=== PATIENT | male | born 1980 | race Caucasian/White ===

== ENCOUNTER 2019-12-11 07:01 | Outpatient (CLI) | payer BC, SELFPAY ==
--- NOTE | ~2019-12-11 | CT_ITS ---
EXAMINATION: CT abdomen pelvis w con INDICATION: Left lower quadrant pain TECHNIQUE: Computed tomographic images of the abdomen and pelvis were obtained after the administrati on of 100 cc of Omnipaque 350 intravenous contrast. The dose-length product (DLP) was 1566.39 mGy-cm. Automated exposure control and iterative reconstruction technique were employed. COMPARISON: None available FINDINGS: The lung bases are clear. The heart size is normal. There is a 5.1 x 5.0 cm mass in the upp er abdomen situated between the main portal vein, celiac axis, and the inferior vena cava which displ aces rather than invades these structures. There appears to be a communication with the first portion of the duodenum. The liver, spleen, pancreas, gallbladder, and adrenal glands are normal. The kidney s are unremarkable. No pathologically enlarged abdominal or pelvic lymph nodes are identified. There is no free intraperitoneal gas or evidence of bowel obstruction. The appendix is normal. There is mil d lumbar spondylosis. IMPRESSION: 1. Upper abdominal mass as described above. Considerations include gastrointestinal stromal tumor, du odenal diverticulum, or less likely duplication cyst. Would recommend endoscopy with possible biopsy. Reviewed, dictated and finalized at location A. IMPRESSION: 1. Upper abdominal mass as described above. Considerations include gastrointest inal stromal tumor, duodenal diverticulum, or less likely duplication cyst. Wou ld recommend endoscopy with possible biopsy.
== END 2019-12-11 07:02 ==
PROVIDERS: PCP Internal Medicine; Visit Provider Internal Medicine
DX: R10.32 Left lower quadrant pain (principal)
CPT/HCPCS: 74177; Q9965

== ENCOUNTER 2020-01-12 09:36 | Outpatient (CLI) | payer BC, SELFPAY ==
--- NOTE | ~2020-01-12 | CT_ITS ---
EXAMINATION: CT chest abdomen w con INDICATION: Retroperitoneal mass TECHNIQUE: Computed tomographic images of the chest and abdomen were obtained after the administratio n of 100 cc of Omnipaque 350 intravenous contrast. The dose-length product (DLP) was 1515.58 mGy-cm. Automated exposure control and iterative reconstruction technique were employed. COMPARISON: 12/11/2019 FINDINGS: Chest: There is a 3 mm nodule of the left upper lobe on image 60. Fissural lymph nodes are seen in as sociation with the major fissure on the right. The lungs are free of acute opacities. There is no ple ural effusion or pneumothorax. No pathologically enlarged thoracic lymph nodes are identified. The he art size is normal. Abdomen: There is a stable upper abdominal mass measuring up to 5.2 cm situated between the main port al vein, the celiac axis, and the inferior vena cava. The mass is again seen to displace rather than invade these structures. A communication with the second portion of the duodenum is again questioned. The liver, spleen, pancreas, gallbladder, and adrenal glands are normal. The kidneys are unremarkabl e. No pathologically enlarged abdominal lymph nodes are identified. There are no dilated loops of bow el. IMPRESSION: 1. Indeterminate 3 mm nodule of the left upper lobe. 2. Stable upper abdominal mass with differential as previously described. Recommend correlation with biopsy results. Reviewed, dictated and finalized at location A. IMPRESSION: 1. Indeterminate 3 mm nodule of the left upper lobe. 2. Stable upper abdominal mass with differential as previously described. Recom mend correlation with biopsy results.
== END 2020-01-12 09:37 | disposition home or self-care (01) ==
LOC: CHSIMG 09:38
PROVIDERS: PCP Internal Medicine
DX: R19.00 Intra-abdominal and pelvic swelling, mass and lump, unspecified site (principal)
CPT/HCPCS: 71260; 74160; Q9965

== ENCOUNTER 2020-04-19 07:57 | Outpatient (CLI) | payer BC, SELFPAY ==
--- NOTE | ~2020-04-19 | CT_ITS ---
EXAMINATION: CT abdomen w con DATE: 04/19/2020 08:29 INDICATION: Follow-up of retroperitoneal tumor removed in December 2019 TECHNIQUE: Computed tomography (CT) of the abdomen was performed with 100 cc Omnipaque 350 intravenou s contrast. Automated exposure control and iterative reconstruction technique were employed. Exam dos e: 1207.21 mGy-cm total exam DLP. COMPARISON: 01/12/2020 CT chest abdomen 12/11/2019 CT abdomen pelvis FINDINGS: The lung bases are clear of infiltrate or consolidation. Normal heart size. No pericardial or pleural effusion. Postoperative scar of the anterior abdominal wall. The liver, gallbladder, bile ducts, spleen are unremarkable. Normal morphology of the adrenal glands. There are surgical clips in the region of the pancreatic head. There is a hypodense mass in the regio n of the pancreatic neck with attenuation of approximately 17 Hounsfield units, currently measuring u p to approximately 3.3 x 3.7 cm dimension, compared to 5.1 x 5.0 cm dimension mass on 12/11/2019. Martinez camron, this mass is situated at the anteromedial aspect of the portal vein as opposed to the prior mass which was situated at the posteromedial aspect of the portal vein. This is likely the same histology as the prior mass. No renal mass lesion or urinary tract calculus or hydroureteronephrosis. Normal caliber of the abdominal aorta. There are shotty nonenlarged periaortic and aortocaval lymph n odes. Normal appendix. No bowel obstruction, bowel wall thickening, pneumatosis or intraperitoneal free air . There are occasional left colonic diverticula without evidence of diverticulitis. IMPRESSION: Retroperitoneal midline hypodense mass in the region of pancreatic neck. This is likely similar pathology to the prior retroperitoneal mass resected in December 2019. Pancreatic carcinoma is not excluded. Reviewed, dictated and finalized at [facility]. Reviewed, dictated and finalized at location A. ERY SUPERVISOR IMPRESSION: Retroperitoneal midline hypodense mass in the region of pancreatic neck. This is likely similar pathology to the prior retroperitoneal mass resec basilio in December 2019. Pancreatic carcinoma is not excluded.
== END 2020-04-19 07:58 | disposition home or self-care (01) ==
LOC: CHSIMG 07:58
PROVIDERS: PCP Internal Medicine
DX: R19.00 Intra-abdominal and pelvic swelling, mass and lump, unspecified site (principal)
CPT/HCPCS: 74160; Q9965

== ENCOUNTER 2020-05-19 17:35 | Outpatient (CLI) | payer BC, SELFPAY ==
[2020-05-19 18:48] LABS: SARS-CoV-2 Ag Negative (Negative)
== END 2020-05-19 17:36 | disposition home or self-care (01) ==
LOC: CHSLAB 17:37
PROVIDERS: PCP Internal Medicine; Visit Provider Internal Medicine
DX: Z20.822 Contact with and (suspected) exposure to COVID-19 (principal)
CPT/HCPCS: 87426; C9803

== ENCOUNTER 2020-09-13 07:38 | Outpatient (CLI) | payer BC, SELFPAY ==
--- NOTE | ~2020-09-13 | CT_ITS ---
EXAMINATION: CT abdomen w con INDICATION: Pancreatic cyst, benign retroperitoneal tumor removal TECHNIQUE: Computed tomographic images of the abdomen were obtained after the administration of 100 c c of Omnipaque 350 intravenous contrast. The dose-length product (DLP) was 1238.17 mGy-cm. Automated exposure control and iterative reconstruction technique were employed. COMPARISON: 04/19/2020 FINDINGS: The lung bases are clear. The heart size is normal. The liver is diffusely low in attenuati on when compared with the spleen, consistent with hepatic steatosis. Again noted are surgical changes from resection of the previously described retroperitoneal mass. There is a 2.6 x 1.8 cm fluid colle ction at the surgical site which previously measured 3.6 x 3.4 cm. This exerts minimal mass effect on the portal vein and the head of the pancreas. The liver is diffusely low in attenuation when compare d with the spleen, consistent with hepatic steatosis. The spleen, pancreas, gallbladder, and adrenal glands are normal. The kidneys are unremarkable. There are no pathologically enlarged abdominal lymph nodes. The appendix is normal. There is no free intraperitoneal gas or evidence of bowel obstruction. IMPRESSION: 1. Small fluid collection at the site of the previously resected retroperitoneal mass with interval d ecrease in size, likely resolving postoperative seroma. 2. Diffuse hepatic steatosis. Reviewed, dictated and finalized at location A. IMPRESSION: 1. Small fluid collection at the site of the previously resected retroperitonea l mass with interval decrease in size, likely resolving postoperative seroma. 2. Diffuse hepatic steatosis.
== END 2020-09-13 07:39 | disposition home or self-care (01) ==
LOC: CHSIMG 07:39
PROVIDERS: PCP Internal Medicine
DX: K86.2 Cyst of pancreas (principal)
CPT/HCPCS: 74160; Q9967

== ENCOUNTER 2021-03-25 10:22 | Outpatient (CLI) | payer BC, SELFPAY ==
[2021-03-25 11:00] LABS: Post Vasectomy Sperm Presence None Seen (None Seen)
== END 2021-03-25 10:23 | disposition home or self-care (01) ==
LOC: CHSLAB 10:24
PROVIDERS: PCP Family Medicine; Visit Provider Family Medicine
DX: Z30.09 Encounter for other general counseling and advice on contraception (principal)
CPT/HCPCS: 88160; 89321

== ENCOUNTER 2021-04-10 07:40 | Outpatient (CLI) | payer BC, SELFPAY ==
--- NOTE | ~2021-04-10 | CT_ITS ---
EXAMINATION: CT abdomen w con DATE: 04/10/2021 08:11 INDICATION: Mid to right abdominal discomfort. History of schwannoma. TECHNIQUE: Computed tomography (CT) of the abdomen was performed with 100 cc Omnipaque 350 intravenou s contrast. Automated exposure control and iterative reconstruction technique were employed. Exam dos e: 1151.31 mGy-cm total exam DLP. COMPARISON: 09/13/2020, 04/19/2020, 01/12/2020, 01/11/2020 CT abdomen examinations FINDINGS: There are surgical clips in the upper retroperitoneum from resection of prior 5 cm midline retroperitoneal mass, without evidence of recurrence. There is interval resolution of previously reported 2.6 x 1.8 cm cystic collection in the superior as pect of the pancreatic neck since 09/13/2020. There is diffuse hepatic steatosis. No hepatic space-occupying mass lesion is evident. The gallbladder is present and appears unremarkable. No bile duct or pancreatic duct dilatation. No p ancreatic mass lesion or calcification. Normal splenic size. Normal morphology of the adrenal glands. No renal mass lesion or urinary tract calculus or hydroureteronephrosis. Normal caliber of the abdominal aorta. No intraperitoneal or retroperitoneal or pelvic mass lesion or adenopathy or ascites. The appendix appears normal. No bowel obstruction, bowel wall thickening, pneumatosis or intraperiton eal free air is detected Normal heart size. No pericardial or pleural effusion. Included skeletal structures are unremarkable. IMPRESSION: Postoperative change of the upper mid retroperitoneum; no recurrent mass. Resolution of cystic lesion at superior aspect of pancreatic neck since 09/13/2020 Hepatic steatosis Reviewed, dictated and finalized at [facility]. Reviewed, dictated and finalized at location B. TIVE SERVICES WRITER IMPRESSION: Postoperative change of the upper mid retroperitoneum; no recurren t mass. Resolution of cystic lesion at superior aspect of pancreatic neck since 09/13/2020 Hepatic steatosis
== END 2021-04-10 07:41 | disposition home or self-care (01) ==
LOC: CHSIMG 07:42
PROVIDERS: PCP Internal Medicine
DX: D36.10 Benign neoplasm of peripheral nerves and autonomic nervous system, unspecified (principal); G97.63 Postprocedural seroma of a nervous system organ or structure following a nervous system procedure
CPT/HCPCS: 74160; Q9967